=== PATIENT | female | born 1985 | race Caucasian/White ===

== ENCOUNTER 2016-09-03 10:29 | Day surgery (SDC) | payer OTHER ==
[2016-09-03] VITALS (9 sets, daily range): BP systolic 121–143; BP diastolic 71–87; PULSE 79–107; RESP 16–21; O2SAT 98–100
[~2016-09-03] VITALS: Ht 177.8 cm; Wt 96.9 kg
[2016-09-03] MEDS: Lactated Ringer's 1,000 ML IV SCH ×4 (06:00→12:55)
--- NOTE | 2016-09-03 08:38 | PCM.HPANE ---
Patient Data Surgeon Admitting Provider: Attending Provider:Brice King MD Primary Care Physician:Christine Stoddard MD Other Provider:Sarah Dalton Anesthesia Reason for Visit Submucous Leiomyoma Of Uterus Ht/WT & BMI Height (Feet): 5 Height (Inches): 10 Weight (Kilograms): 95.25 Body Mass Index 30.00 Allergies Coded Allergies: No Known Allergies (Unverified , 08/29/16) Past Anesthesia History Anesthesia History: Denies:: Abnormal Airway, Anesthesia Reactions (no prior surgery), Difficult Intubation, Fam Anesthesia Reaction Diabetes History Hx Diabetes?: Yes (hgb A1C 8.2 on 06/2016) Type of Diabetes: Type II Glycemic Control: Oral Medication MRSA MRSA: No Medications Hypertension Medication: Yes Home Meds Incl Beta Clifford: No Reported Medications Metformin (Glucophage)1,000 Mg Tablet1,000 Mg PO BID Ref 0 08/29/16 Lisinopril 5 Mg Tablet5 Mg PO DAILY #30 TABLET Ref 0 08/29/16 Glyburide 2.5 Mg Tablet2.5 Mg PO QPM 30 Days Ref 0 08/29/16 Glyburide 2.5 Mg Tablet3.75 Mg PO QAM 30 Days Ref 0 08/29/16 Cholecalciferol (Vitamin D3) (Vitamin D3)1,000 Unit Tab.chew1,000 Unit PO DAILY 08/29/16 Atorvastatin (Lipitor)10 Mg Tab10 Mg PO DAILY Ref 0 08/29/16 Discontinued Reported Medications Ethinyl Estradiol/Drospirenone 0.03-3 mg (Ocella 0.03-3 mg)1 Each Tablet1 Tablet PO DAILY #1 PACK 08/29/16 History History of ENT Problems?: No HEENT History: Denies:: Abnormal Airway Cataracts Difficult Intubation Dysphagia Glaucoma Hearing Problem Sinus Problem TMJ Hx of Heart Problems?: Yes Cardiovascular History: Positive for:: Hypertension (hld) Denies:: AICD Abdominal Aortic Aneurism Atrial Fibrillation Edema Heart Murmur Irregular Heartbeat Pacemaker Peripheral Vascular Hx of Respiratory Problem?: No Respiratory History: Denies:: Asthma COPD Emphysema Oxygen Administration Pneumonia Tuberculosis Use of C-PAP Machine Use of Inhalers / NEBS Hx Neurologic Problems?: No Neurological History: Denies:: CVA Dizziness Headaches Multiple Sclerosis Parkinson's Disease Seizures TIA Hx of GI Problems?: No Gastrointestinal History: Denies:: Cirrhosis Gall Bladder Disease Gastroesphageal Reflux Heartburn Hepatitis Hiatal Hernia Liver Disease Hx of Problems?: No Genitourinary History: Denies:: Kidney Stones Urinary Tract Infection Female Hx: Denies:: Problems with Breasts? Skin History: Denies:: History Skin Disorders? Pressure Ulcers Hx Musculoskeletal Problems?: No Musculoskeletal History: Denies:: Back Injury Degenerative Joint Fibromyalgia Joint Replacement Musculoskeletal Trauma Myasthenia Gravis Osteoarthritis Rheumatoid Arthritis Hx of Psycho/Social Problems?: No Psycho Social History: Denies:: Anxiety Hx Depression Hx Surgeries?: No Hx Any Other Health Problems?: Yes Other History: Denies:: Cancer Thyroid Disease History Blood Transfusions: Positive for:: Accept Blood Products? Denies:: Blood Transfusions Hx Diabetes: Yes (hgb A1C 8.2 on 06/2016) Hx Alcohol Use: NoHx Substance Use: NoHave You Smoked inLast 12 mo: No Stop/Bang P-Blood Pressure: treated: Yes B- Body Mass Index > 35 kg/m2: No A- Age over 50: No N- Neck Large Circumference: No G- Gender Male: No PAULO Risk Assessment: Low Risk, <3 Yes Risk Assessment Category Category 1A: Patient has history of documented sleep apnea, and HAS NOT received any narcotic, sedative or anesthesia administration during this stay. Category 1B: Patient has history of documented sleep apnea, and HAS received any narcotic , sedative or anesthesia administration during this stay Category 2: Patient has SUSPECTED Obstructive Sleep Apnea, and HAS received any narcotic , sedative or anesthesia administration during this stay. Category 3: Patient has SUSPECTED Obstructive Sleep Apnea and HAS NOT received narcotic, sedative or anesthesia administration during this stay. Category 4: Outpatient in Procedural Areas with known sleep apnea or who screen positive for High Risk via the STOP/BANG questionnaire. Exam Exam General Appearance: Alert, Oriented X3, Cooperative, No Acute Distress HEENT/AIRWAY: MP 2 Lungs: Clear to Auscultation, Normal Air Movement Heart: Exam Unremarkable, Regular Rate/Rhythm, No Murmurs/Rubs/Gallops Plan Impression Patient chart reviewed, patient interviewed and anesthestic plan with risks, benefits, and alternatives discussed, and informed consent obtained. ASA Physical Status: ASA2 Mod Systemic Disease Anesthetic Plan: GA Bene/Risks/Altern/Consents: Yes HP Complete Prior to Induction: Yes Keith Hyatt MD Sep 03, 2016 08:38
[~2016-09-03 10:29] MED LIST: ATRV10T PO; CHOL10008 PO; ETHI1TAB PO; GLYB2.5T4 PO; LISI-571 PO; METF1000 PO
[2016-09-03] MEDS ORDERED: fentaNYL-PF 50 mCg/mL 2 mL Inj ONE (10:30)
[2016-09-03] MEDS ORDERED: Dexamethasone 4 mg/mL Inj ONE (10:30)
[2016-09-03] MEDS ORDERED: Ondansetron 2 mg/mL 2 mL Inj ONE (10:30)
[2016-09-03] MEDS ORDERED: Propofol 10,000 mCg/mL 20 mL Inj ONE (10:30)
[2016-09-03] MEDS ORDERED: Levonorgestrel 20 mcg/24 hr IUD INTRAUTERI ONE (12:29)
[2016-09-03] MEDS ORDERED: Lactated Ringer's 500 ML IV PRN (13:10)
[2016-09-03] MEDS ORDERED: hydrALAZINE 20 mg/mL Inj IVPUSH PRN (13:10)
[2016-09-03] MEDS ORDERED: Dexamethasone 4 mg/mL Inj IVPUSH PRN (13:10)
[2016-09-03] MEDS ORDERED: MetoCLOpramide 5 mg/mL 2 mL Inj IVPUSH PRN (13:10)
[2016-09-03] MEDS ORDERED: fentaNYL-PF 50 mCg/mL 2 mL Inj IVPUSH PRN (13:10)
[2016-09-03] MEDS ORDERED: EPHEDrine Sulfate 50 mg/mL Inj IVPUSH PRN (13:10)
[2016-09-03] MEDS ORDERED: Atropine 0.4 mg/mL Inj IVPUSH PRN (13:10)
[2016-09-03] MEDS ORDERED: HYDROmorphone 1 mg/mL Inj IVPUSH PRN (13:10)
[2016-09-03] MEDS ORDERED: Labetalol 5 mg/mL 4 mL Inj IV PRN (13:10)
[2016-09-03] MEDS ORDERED: Lactated Ringer's 1,000 ML IV SCH (13:10)
[2016-09-03] MEDS ORDERED: Ondansetron 2 mg/mL 2 mL Inj IVPUSH PRN ×2 (13:10→13:45)
[2016-09-03] MEDS ORDERED: Phenylephrine 10,000 mCg/mL Inj IVPUSH PRN (13:10)
--- NOTE | 2016-09-03 13:44 | PCM.SURGOP ---
Surgical Operative Report Date of Service: Sep 03, 2016 Pre Operative Diagnosis Abnormal uterine bleeding related to fibroids Post Operative Diagnosis Same Procedure: 1. Operative hysteroscopy 2. Hysteroscopic myomectomy 3. IUD insertion, Mirena (exp date 01/2019) Surgeon and Plant Pathology Teacher: Surgeon: Brice King MD Assistants: None Indication for Procedure Mojgan is a 31 y/o G0 who presents today for a planned hysteroscopy with myomectomy, D&C and LNG-IUD insertion for AUB-HMB, dysmenorrhea. She bleeding through a tampon and pad every hour. She needs to wear overnight pads, and never has had this before. She states this has been going on for about 8 months. She has also noted that she has deep crampy pain with intercourse, which is new. This interfere tremendously with her life and with work. She had an ultrasound on 06/2016 that shows a 24mm submucosal mass, possibly a fibroid. Uterus measured normally with several small fibroids and the ovary that was visualized appears WNL. Her hgb was normal 06/2016. She had normal thyroid studies at that time. She has DM2 and her hgbA1c was 8.2% and she also had dyslipidemia. She is obese with a BMI of 30. She takes OCPS for contraception, but given her PMH this is not ideal. She had an unremarkable pelvic exam in June and normal pap with negative HPV. She denies h/o STDs and abnormal paps. Preoperative exam performed on 08/26/2015, risks, benefits and alternatives to the procedure reviewed and consents signed. Please see H&P for details. Findings: Bimanual exam reveals 10-11 weeks sized, irregularly shaped, mobile uterus c/w multifibroid uterus. Normal appearing cervix. Intrauterine cavity with anterior mass mid uterus c/w possible fibroid with 1/2 invading the cavity. A small, likely 1-2cm mass seen in the right cornua c/w submucosal fibroid, 100% submucosal. Bilateral ostia noted and normal. Endocervical cavity appears normal. Procedure Details The patient was taken to the operating room where she was placed under general anesthesia without difficulty. She was then positioned in dorsal lithotomy with Yellofin stirrups. An exam under anesthesia was performed that revealed a 10-11 week sized uterus, multi-fibroid and mobile. She was then prepped and draped in the normal sterile fashion. A straight catheterization performed to empty bladder. A time out was performed prior to the start of the procedure. A speculum was then placed in the patient's vaginal and a tenaculum on the anterior lip of the cervix. The uterus was then sounded to 9 cm. The cervix was then easily dilated to accommodate the hysteroscope. The hysteroscopy was performed using normal saline medium. The uterine cavity was inspected and fibroids as described above noted. Bilateral tubal ostia were visualized and were normal. Myosure used to perform myomectomy until fibroids completely cleared from cavity and cavity felt to be without lesions. Hysteroscopic fluid deficit was 975mL. The Mirena IUD was opened and inserted per directions with depth of 9cm as per sound. String trimmed at 4cm. All instruments were removed from the patient's vagina. The tenaculum sites were inspected and noted to be hemostatic. The patient tolerated the procedure well. Sponge, lap, and instrument counts were correct x2 at the close of the procedure. IVF: 500mL UOP: 150mL EBL: 30mL Hysteroscopic fluid deficit: 975mL VTE Prophylaxis: SCDs Antibiotics: None Complications There were no periprocedural complications identified. Surgical Specimen Removed: Yes Specimen sent to Pathology: Yes Surgical Specimen description: Submucosal fibroid fragments Anesthetic Plan: GA Grafts, Implants: Grafts-See Implant Record (Mirena IUD) Output, Estimated Blood Loss: 30 (mL) Blood Administration during alvares: No Catheters: Straight Post Operative Plan Home with recovered and stable. I will see her back in the office in 2 weeks and possible consider shortening strings at this time. Brice King MD Sep 03, 2016 13:44
[2016-09-03] MEDS ORDERED: HYDROcodone-APAP 5-325 mg Tablet PO PRN (13:45)
--- NOTE | 2016-09-03 13:51 | PCM.DIGYN ---
Surgical Discharge Instruction Dates of Hospitalization Date of Hospital Admission 09/03/2016 Providers Admitting Physician: Primary Care Physician: Christine Stoddard MD Attending Physician: Brice King MD Diagnosis at Time of Discharge Post-operative diagnosis Same Problems: (1) Abnormal uterine bleeding Status: Acute ICD Code: N93.9 (2) Submucous uterine fibroid Status: Acute ICD Code: D25.0 (3) Diabetes Status: Acute ICD Code: E11.9 Diet Discharge Diet: Diabetic Activity Discharge Activity-General: Be up and about, No driving while taking narcotic, Other (Pelvic rest for 2 weeks (no intercourse or tampons or anything inside the vagina.)) Dressing and Incisional Care Hygiene: May shower, NO bathtub, hot tub or whirlpool Additional Instructions Discharge Instructions You had an uncomplicated hysteroscopy with removal of fibroids and IUD insertion. The samples of the fibroids were sent to the pathologist and the results should be back in 1-2 weeks. A Mirena IUD was inserted. I left the strings a little longer as we can always trim them when I see you back for your next visit. There is a chance that you expel the IUD (so check the toilet before flushing). If this happens, then another can be inserted in the office. Follow Up Plan Follow-up Provider (F9): Brice King MD Follow-up appointment: Weeks (2) Call your provider for: Fever (of 100.4 or higher), Chills, Shortness of breath , Vomitting, Heavy vaginal bleeding, Increasing pain Brice King MD Sep 03, 2016 13:51
--- NOTE | 2016-09-03 14:00 | PCM.ANEP1 ---
Post Anesthesia Phase 1 PACU Phase 1 Assessment Date of Service: Sep 03, 2016 Vital Signs Vital Signs Date Time Temp Pulse Resp B/P Pulse Ox O2 Delivery O2 Flow Rate FiO2 09/03/16 13:45 103 19 137/87 100 Room Air 09/03/16 13:41 36.6 107 21 143/86 99 Simple Mask 9 09/03/16 11:22 36.8 92 18 124/86 99 Room Air Anesthetic Administered: GA Level of Alertness: Awake, talking NOGUERA's with Equal Strength: Yes Pain: No Nausea or Vomiting: No Oxygen Delivery: Simple Mask Lungs: Clear to Auscultation, Normal Air Movement Keith Hyatt MD Sep 03, 2016 14:00
--- NOTE | 2016-09-03 14:49 | PCM.ANEP2 ---
Post Anesthesia Evaluation ASA/CMS Post Anesthesia VS in Patient's Normal Range?: Yes Resp Stable; Airway Patent?: Yes CV Function & Hydration Stable: Yes Mental Status Recovered?: Yes Pain control Satisfactory?: Yes N/V Control Satisfactory?: Yes Keith Hyatt MD Sep 03, 2016 14:49
--- NOTE | 2016-09-06 08:14 | PATH ---
SURGICAL PATHOLOGY Attending Physician:Brice King MD CASE STATUS: Signed Out PATIENT NAME: BRE ZENDEJAS PID: [id number] : 1985 DATE COLLECTED:09/03/2016 22:37 SPECIMEN: Uterus, Fibroid (separate surgical procedure) CLINICAL HISTORY: ABNORMAL UTERINE BLEEDING, UTERINE FIBROIDS 1). UTERINE FIBROIDS (SUBMUCOSAL) FINAL DIAGNOSIS: Uterine Fibroid (Submucosa): Multiple small fragments of smooth muscle tumor, consistent with submucosal leiomyomas. No evidence of malignancy. ICD10 D25.2 GROSS DESCRIPTION: The specimen is received in one formalin filled container labeled with the patient's name, sublabeled "uterine fibroids (submucosal)" and consists of multiple portions of light dawn tissue which aggregate to 4.0 x 3.0 x 1.0 CM. The specimen is entirely submitted in 4 cassettes. 09/03/2016 DAC MICRO DESCRIPTION: Please see diagnosis. ICD-9 CODES: CPT CODES: 1: 64379 Electronically Signed Out Marely Dominguez MD [facility] Pathology [facility] [address], [place] [address] Technical component performed at [facility], [address] [place] [address] Ave[address], [place], [address]
== END 2016-09-03 23:59 | disposition home or self-care (01) ==
LOC: SAS 10:29
PROVIDERS: ATTEND Obstetrics & Gynecology
DX: D25.0 Submucous leiomyoma of uterus (principal); N93.9 Abnormal uterine and vaginal bleeding, unspecified; I10 Essential (primary) hypertension; E11.9 Type 2 diabetes mellitus without complications; E78.2 Mixed hyperlipidemia; E66.9 Obesity, unspecified; Z79.84 Long term (current) use of oral hypoglycemic drugs; Z68.30 Body mass index [BMI] 30.0-30.9, adult; Z30.014 Encounter for initial prescription of intrauterine contraceptive device
CPT/HCPCS: 58300; 58561; J1100; J2250; J2405; J3010; J7120; J7297; J7298

== ENCOUNTER 2017-03-23 12:35 | Emergency (ER) | payer OTHER ==
[~2017-03-23] VITALS: Ht 177.8 cm; Wt 95.5 kg
[~2017-03-23 12:35] MED LIST changes: -ETHI1TAB PO
[2017-03-23 12:53] VITALS: BP 134/74; PULSE 114; RESP 16; O2SAT 100
[2017-03-23 13:29] LABS: BASOPHILS % (AUTO) 0.6 % (0-3); EOSINOPHILS % (AUTO) 1.8 % (0-5); MONOCYTES % (AUTO) 4.1 % (4-12); Mean Corpuscular Hemoglobin 21.9 pg (27.0-35.0); Mean Corpuscular Volume 71.1 fL (81-100); Platelet Count 533 bil/L (150-400)
[2017-03-23 13:49] LABS: Magnesium 1.6 mg/dL (1.6-2.6)
--- NOTE | 2017-03-23 13:54 | ED.REPORT ---
HPI-General Illness Date of Service Mar 23, 2017 ED Provider: Mojgan is a 31-year-old female with a history of diabetes presenting to emergency department with a chief complaint of vaginal bleeding. Patient reports a 5 week history of vaginal bleeding increasing in the last several days. Patient reports having fibroids removed in August and a Mirena placed. The IUD was accidentally removed in November. On January 22 to the patient received Depo-Provera shot. On February 19 she reports that she started with some mild vaginal bleeding. Increased on February 26. She reports a large clots as well as using heat to 10 tampons per day. This is associated with a sense of fatigue and lower abdominal cramping. Denies fever, shaking chills, purulent vaginal discharge, bowel changes, urinary symptoms, chest pain or shortness of breath Nursing Notes Stated Complaint: PERIOD FOR 5 WEEKS Chief Complaint: General Complaint Nursing Notes Reviewed: Yes Allergies: Coded Allergies: No Known Allergies (Unverified , 08/29/16) Scheduled Atorvastatin (Lipitor) 10 Mg Tab 10 MG PO DAILY Cholecalciferol (Vitamin D3) (Vitamin D3) 1,000 Unit Tab.chew 1,000 UNIT PO DAILY Glyburide (Glyburide) 2.5 Mg Tablet 3.75 MG PO QAM Glyburide (Glyburide) 2.5 Mg Tablet 2.5 MG PO QPM Lisinopril (Lisinopril) 5 Mg Tablet 5 MG PO DAILY Metformin (Glucophage) 1,000 Mg Tablet 1,000 MG PO BID General Time Seen by MD: 13:53 Chief Complaint Other (vaginal bleeding) Past Medical History Past Medical History Diabetes Review of Systems Negative unless stated otherwise in history of present illness Physical Exam General: Well appearing, well developed, well nourished, no acute distress. Head: Atraumatic, normocephalic. Eyes: No scleral icterus or injection. No discharge. Vision grossly intact. ENT: Voice clear, hearing grossly intact. Respiratory: Regular rate and rhythm. Breath sounds present, clear to auscultation and equal bilaterally. No respiratory distress. No increased work of breathing, speaks in complete sentences. Cardiovascular: Tachycardic rate and regular rhythm, without murmur, gallop or rub. No pedal edema. Gastrointestinal: Abdomen flat and non-tender without guarding or rebound. Bowel sounds normoactive. : Normal external genitalia with a small amount of blood noted. No lesions noted. Speculum examination reveals a normal cervix with moderate amount of clotted blood emerging. No lesions or purulence. Bimanual exam is normal with no cervical motion tenderness or adnexal tenderness. Adnexa are not appreciated. Performed with a wood buffer. Skin: Warm and dry. Neurological: Grossly nonfocal. Psychological: Alert and oriented. Speech appropriate, linear and logical. Behavior appropriate. Vital Signs Vital Signs Date Time Temp Pulse Resp B/P Pulse Ox O2 Delivery O2 Flow Rate FiO2 03/23/17 21:26 97 18 114/74 100 Room Air 03/23/17 18:45 37.5 97 16 112/69 100 Room Air 03/23/17 16:08 107 18 127/82 100 Room Air 03/23/17 12:53 36.4 114 16 134/74 100 Room Air Tachycardia Interpretation & Diagnostics Lab Results Interpretation Result Diagram: 03/23/17 1320 03/23/17 1320 Test 03/23/17 13:20 03/23/17 15:30 White Blood Count 8.9th/mm3 (3.8-10.1) Red Blood Count 3.43mil/mm3 (3.90-5.20) Hemoglobin 7.5g/dL (12.0-15.6) Hematocrit 24.4% (35.0-46.0) Mean Corpuscular Volume 71.1fL (81-100) Mean Corpuscular Hemoglobin 21.9pg (27.0-35.0) Mean Corpuscular Hemoglobin Concent 30.7% (32.0-37.0) Red Cell Distribution Width 15.0% (12.3-15.4) Platelet Count 533bil/L (150-400) Neutrophils (%) (Auto) 55.0% (40-74) Lymphocytes (%) (Auto) 38.3% (14-46) Monocytes (%) (Auto) 4.1% (4-12) Eosinophils (%) (Auto) 1.8% (0-5) Basophils (%) (Auto) 0.6% (0-3) Prothrombin Time 9.6sec (8.1-12.5) Prothromb Time International Ratio 0.90ratio Sodium Level 134mEq/L (134-144) Potassium Level 4.2mEq/L (3.5-5.2) Chloride Level 98mEq/L (97-108) Carbon Dioxide Level 19mmol/L (18-29) Blood Urea Nitrogen 10mg/dL (6-20) Creatinine 0.51mg/dL (0.57-1.00) Estimat Glomerular Filtration Rate 200mL/min (>59) Glucose Level 308mg/dL (60-99) Calcium Level 9.4mg/dL (8.5-10.1) Magnesium Level 1.6mg/dL (1.6-2.6) Total Bilirubin 0.2mg/dL (0.0-1.2) Aspartate Amino Transf (AST/SGOT) 13U/L (0-50) Alanine Aminotransferase (ALT/SGPT) 14U/L (0-32) Alkaline Phosphatase 52U/L (25-150) Total Protein 7.1g/dL (6.4-8.4) Albumin 4.2g/dL (3.4-5.0) Urine Color Yellow (YELLOW) Urine Appearance Clear (CLEAR,HAZY) Urine pH 5.5 (5.0-8.0) Urine Specific [place] 1.030 (1.003-1.035) Urine Protein Negativemg/dL (NEG,TRACE) Urine Glucose (UA) 500mg/dL (NEGATIVE) Urine Ketones 15mg/dL (NEGATIVE) Urine Occult Blood Large (NEGATIVE) Urine Nitrite Negative (NEGATIVE) Urine Bilirubin Negative (NEGATIVE) Urine Urobilinogen Normalmg/dL (NORMAL) Urine Leukocyte Esterase Negative (NEGATIVE) Urine RBC 3-10/hpf (0-2) Urine WBC 0-5/hpf (0-5) Urine Epithelial Cells None/hpf (NONE-MOD) Urine Crystals None seen (NONE SEEN) Urine Bacteria None/hpf (NONE-FEW) Urine Hyaline Casts None/lpf (NONE) Urine Granular Casts None seen (NONE SEEN) Urine Waxy Casts None seen (NONE SEEN) Urine Red Blood Cell Casts None seen (NONE SEEN) Urine White Blood Cell Casts None seen (NONE SEEN) Urine Mucus None seen (None Seen) Urine Trichomonas None seen (NONE SEEN) Urine Yeast None (NONE SEEN) Urinalysis Comment None Urine Culture Reflexed Not indicated X-Ray Interpretation Xray Interpretation: PROCEDURE: US PELVIC SONOGRAM INDICATIONS: vaginal bleeding IMPRESSION: 1. Fibroid uterus. 2. Nonvisualization of the right ovary. Re-Eval/Medical Decision Med Decision/Clinical Course 31-year-old female with a history of diabetes presenting with 5 week history of vaginal bleeding. Worsening and to presentation with significant clots, use of 810 tampons per day.. Associated with lower abdominal cramping, fatigue. History of myomectomy in August, Depo-Provera shot in January and worsening bleeding since then. Denies fever, other symptoms. On physical examination the patient is quite pale. There is mild lower abdominal tenderness primarily suprapubic without rebound. The pelvic exam there is expected external bleeding as well as moderate dark blood and clots emergent from the os. Cervix appears normal, negative purulent discharge. On bimanual exam there is no adnexal or cervical motion tenderness. Adnexa are not appreciated. Ultrasound reveals large, vascular fibroids, right ovary is well visualized and normal, left is not found. CBC is significant for moderate anemia with hemoglobin of 7.5 and hematocrit of 24.4. Platelet count is 533. CBC reveals elevated glucose of 308. INR is 0.9. Urinalysis is positive for red blood cells, glucose, ketones. Negative for leukocyte esterase, nitrates, WBC. I discussed these findings with Dr. Duong, who will be treated with and examines the patient. He leaves she is safe to be discharged home and will follow up by phone tomorrow. Consultation : Referral / Consult Name: Quique Duong MD Discharge & Departure Primary Impression: Abnormal uterine bleeding Additional Impression: Fibroids Uterine leiomyoma location: unspecified location Qualified Code: D25.9 - Leiomyoma of uterus, unspecified Disposition: Home Discharge Condition All VS Reviewed: Yes Additional Instructions: Evaluation in the emergency department for vaginal bleeding includes interview, physical examination, labs, ultrasound and consultation with a PHYSICAL FITNESS TRAINER. We believe are stable and safe to go home though your fibroids will need treatment in the near future. Expect a phone call from Dr. Duong's office before 10:00 tomorrow. Please contact his office if he do not hear by then. Return to emergency department for any new or worsening symptoms including increasing bleeding, chest pain, shortness of breath or sense that she may pass out. Referrals: Quique Duong MD EDSupervising Provider for APC: Shelton Wilkins MD Attending Statement I saw and evaluated the patient independently and in conjunction with the PA. I agree with the plan and findings as documented above. In brief, 31 yo F presenting to the ED for evaluation of progressively worsening vaginal bleeding over the past 5 weeks, now fatigued and with some mild shortness of breath that seems to have correlated with her clinical course. Mildly pale, though well appearing, no acute distress. Nonlabored respirations. Mildly tachycardic upon arrival, regular rhythm. No change in mental status. Given the availability of very close outpatient followup with Dr. Duong tomorrow, reasonable to discharge home w/ careful return precautions. Patient agreeable to plan as stated, no further questions. copies to: Quique Duong MD, William B MD Mar 23, 2017 13:54 Christophe Hull PA-C Mar 23, 2017 16:03
[2017-03-23] MEDS ORDERED: 0.9% Sodium Chloride 1,000 ML IV ONE ×2 (14:35→16:10)
[2017-03-23 14:46] LABS: INR 0.9 ratio
[2017-03-23 16:03] LABS: APPEARANCE,URINE CLEAR (CLEAR,HAZY); COLOR,URINE YELLOW (YELLOW); OCCULT BLOOD,URINE LARGE (NEGATIVE); PH,URINE 5.5 (5.0-8.0); UROBILINOGEN,URINE NORMAL (NORMAL)
[2017-03-23 16:08] VITALS: BP 127/82; PULSE 107; RESP 18; O2SAT 100
[2017-03-23 18:45] VITALS: BP 112/69; PULSE 97; RESP 16; O2SAT 100
--- NOTE | 2017-03-23 18:54 | DRSVH ---
PROCEDURE: US PELVIC SONOGRAM INDICATIONS: vaginal bleeding TECHNIQUE: Real-time scanning was performed of the pelvic organs, with image documentation. Additional endovagi nal scanning was necessary due to incomplete visualization of the adnexal and endometrial structures by transabdominal scanning. COMPARISON: None. FINDINGS: Transabdominal scanning: Limited scanning through the kidneys shows no hydronephrosis. No pathologi c free abdominal or pelvic fluid. Endovaginal scanning: Uterus: Uterus is normal in size at 9.2 x 0.6 x 6.0 cm. there are multiple uterine fibroids includin g a left midline subserosal fibroid which measures 3.5 x 3.0 x 2.9 cm and a right midline subserosal fibroid which measures 2.7 x 3.2 x 2.3 cm. The endometrium measures 2.9 mm in combined thickness. Ovaries: The right ovary is not visualized due to bowel gas. The left ovary measures 2.9 x 2.5 x 1.5 cm and demonstrates normal flow. IMPRESSION: 1. Fibroid uterus. 2. Nonvisualization of the right ovary. Dictated by: Bethany Leo M.D. on 03/23/2017 at 18:48 Approved by: Bethany Leo M.D. on 03/23/2017 at 18:53
[2017-03-23] MEDS ORDERED: MedroxyPROGESTERone 150 mg/mL Inj IM ONE (20:50)
--- NOTE | 2017-03-23 21:04 | ED.REPORT ---
HPI- Female Date of Service Mar 23, 2017 ED Provider: Christophe Hull PA-C History of Present Illness: 31 YO presenting with vaginal bleeding since 03/29/2017. Patient was experiencing normal, fairly regular menses until about a year ago when her periods started becoming progressively heavier. Her PCP started her on OC's without benefit and she was seen 07/[address] Willis who found uterine fibroids and performed operative hysteroscopy with hysteroscopic myomectomy in 2016. A Mirena IUD was placed at the same time but expelled spontaneously in late October 2016. She was seen by Dr. Yanes in January 2017 and was given DepoProvera IM at that time. Bleeding subsided but it returned 02/26/2017 and has been persistent since that time. She was seen in urgent care 7 days ago and received PO Provera x 5 days which had little effect on her bleeding. She presents now tired and complaining of malaise associated with her persistent bleeding. No orthostatis symptoms. Occasional small clots, mild dysmenorrhea. Nursing Notes Stated Complaint: PERIOD FOR 5 WEEKS Chief Complaint: General Complaint Nursing Notes Reviewed: Yes Allergies: Coded Allergies: No Known Allergies (Unverified , 08/29/16) Scheduled Atorvastatin (Lipitor) 10 Mg Tab 10 MG PO DAILY Cholecalciferol (Vitamin D3) (Vitamin D3) 1,000 Unit Tab.chew 1,000 UNIT PO DAILY Glyburide (Glyburide) 2.5 Mg Tablet 3.75 MG PO QAM Glyburide (Glyburide) 2.5 Mg Tablet 2.5 MG PO QPM Lisinopril (Lisinopril) 5 Mg Tablet 5 MG PO DAILY Metformin (Glucophage) 1,000 Mg Tablet 1,000 MG PO BID General Time Seen by MD: 20:05 Chief Complaint Other Vaginal bleeding since 02/26/2017 Hx Obtained From: Patient, Spouse Sudden in Onset?: No Past Medical History Past Medical History Diabetes Hypertension Denies: AIDS, Asthma, Bleeding disorder, COPD, Cancer, Congestive heart failure , Coronary artery disease, Diabetes mellitus, GERD, Gastritis, HIV, Hyperlipidemia, Hypertension, Mental illness, Peptic ulcer disease, Sickle cell disease, Stroke, Transient ischemic attack Past Surgical History Hysteroscopic myomectomy 08/2016 Denies: Angioplasty, Appendectomy, , CABG, Carotid endarterectomy, Cataract surgery, Cholecystectomy, Hysterectomy, Inguinal hernia repair, Prostatectomy, Tonsillectomy Family History Mother and maternal GM both required hysterectomy in their 30's for uterine fibroids/menorrhagia Smoking History Never Smoker Social History Alcohol Use: Denies alcohol use Drug Use: Denies drug use Ambulatory Status Independent Review of Systems Basic Review of Systems Respiratory: No shortness of breath, No cough, No wheeze Cardiovascular: No chest pain, No dyspnea on exertion, No orthopnea, No parox noct dyspnea, No palpitations Female: Reports: Vaginal bleeding - abnl Physical Exam Physical Exam Notes: General: Well appearing, well developed, well nourished, no acute distress. Head: Atraumatic, normocephalic. Eyes: No scleral icterus or injection. No discharge. Vision grossly intact. ENT: Voice clear, hearing grossly intact. Respiratory: Regular rate and rhythm. Breath sounds present, clear to auscultation and equal bilaterally. No respiratory distress. No increased work of breathing, speaks in complete sentences. Cardiovascular: Tachycardic rate and regular rhythm, without murmur, gallop or rub. No pedal edema. Gastrointestinal: Abdomen flat and non-tender without guarding or rebound. Bowel sounds normoactive. : Normal external genitalia with a small amount of blood noted. No lesions noted. Speculum examination reveals a normal cervix with moderate amount of clotted blood emerging. No lesions or purulence. Bimanual exam is normal with no cervical motion tenderness or adnexal tenderness. Adnexa are not appreciated. Skin: Warm and dry. Neurological: Grossly nonfocal. Psychological: Alert and oriented. Speech appropriate, linear and logical. Behavior appropriate. Vital Signs Initial Vital Signs Vital Signs (First) Date Time Temp Pulse Resp B/P Pulse Ox O2 Delivery O2 Flow Rate FiO2 03/23/17 12:53 36.4 114 16 134/74 100 Room Air Initial VS: Reviewed, Vital signs normal Interpretation & Diagnostics Lab Results Interpretation Result Diagram: 03/23/17 1320 03/23/17 1320 Test 03/23/17 13:20 03/23/17 15:30 White Blood Count 8.9th/mm3 (3.8-10.1) Red Blood Count 3.43mil/mm3 (3.90-5.20) Hemoglobin 7.5g/dL (12.0-15.6) Hematocrit 24.4% (35.0-46.0) Mean Corpuscular Volume 71.1fL (81-100) Mean Corpuscular Hemoglobin 21.9pg (27.0-35.0) Mean Corpuscular Hemoglobin Concent 30.7% (32.0-37.0) Red Cell Distribution Width 15.0% (12.3-15.4) Platelet Count 533bil/L (150-400) Neutrophils (%) (Auto) 55.0% (40-74) Lymphocytes (%) (Auto) 38.3% (14-46) Monocytes (%) (Auto) 4.1% (4-12) Eosinophils (%) (Auto) 1.8% (0-5) Basophils (%) (Auto) 0.6% (0-3) Prothrombin Time 9.6sec (8.1-12.5) Prothromb Time International Ratio 0.90ratio Sodium Level 134mEq/L (134-144) Potassium Level 4.2mEq/L (3.5-5.2) Chloride Level 98mEq/L (97-108) Carbon Dioxide Level 19mmol/L (18-29) Blood Urea Nitrogen 10mg/dL (6-20) Creatinine 0.51mg/dL (0.57-1.00) Estimat Glomerular Filtration Rate 200mL/min (>59) Glucose Level 308mg/dL (60-99) Calcium Level 9.4mg/dL (8.5-10.1) Magnesium Level 1.6mg/dL (1.6-2.6) Total Bilirubin 0.2mg/dL (0.0-1.2) Aspartate Amino Transf (AST/SGOT) 13U/L (0-50) Alanine Aminotransferase (ALT/SGPT) 14U/L (0-32) Alkaline Phosphatase 52U/L (25-150) Total Protein 7.1g/dL (6.4-8.4) Albumin 4.2g/dL (3.4-5.0) Urine Color Yellow (YELLOW) Urine Appearance Clear (CLEAR,HAZY) Urine pH 5.5 (5.0-8.0) Urine Specific [place] 1.030 (1.003-1.035) Urine Protein Negativemg/dL (NEG,TRACE) Urine Glucose (UA) 500mg/dL (NEGATIVE) Urine Ketones 15mg/dL (NEGATIVE) Urine Occult Blood Large (NEGATIVE) Urine Nitrite Negative (NEGATIVE) Urine Bilirubin Negative (NEGATIVE) Urine Urobilinogen Normalmg/dL (NORMAL) Urine Leukocyte Esterase Negative (NEGATIVE) Urine RBC 3-10/hpf (0-2) Urine WBC 0-5/hpf (0-5) Urine Epithelial Cells None/hpf (NONE-MOD) Urine Crystals None seen (NONE SEEN) Urine Bacteria None/hpf (NONE-FEW) Urine Hyaline Casts None/lpf (NONE) Urine Granular Casts None seen (NONE SEEN) Urine Waxy Casts None seen (NONE SEEN) Urine Red Blood Cell Casts None seen (NONE SEEN) Urine White Blood Cell Casts None seen (NONE SEEN) Urine Mucus None seen (None Seen) Urine Trichomonas None seen (NONE SEEN) Urine Yeast None (NONE SEEN) Urinalysis Comment None Urine Culture Reflexed Not indicated Lab Results Interpretation: Urine hCG NEGATIVE US Focused non-OB Pelvis PROCEDURE: US PELVIC SONOGRAM INDICATIONS: vaginal bleeding TECHNIQUE: Real-time scanning was performed of the pelvic organs, with image documentation. Additional endovaginal scanning was necessary due to incomplete visualization of the adnexal and endometrial structures by transabdominal scanning. COMPARISON: None. FINDINGS: Transabdominal scanning: Limited scanning through the kidneys shows no hydronephrosis. No pathologic free abdominal or pelvic fluid. Endovaginal scanning: Uterus: Uterus is normal in size at 9.2 x 0.6 x 6.0 cm. there are multiple uterine fibroids including a left midline subserosal fibroid which measures 3.5 x 3.0 x 2.9 cm and a right midline subserosal fibroid which measures 2.7 x 3.2 x 2.3 cm. The endometrium measures 2.9 mm in combined thickness. Ovaries: The right ovary is not visualized due to bowel gas. The left ovary measures 2.9 x 2.5 x 1.5 cm and demonstrates normal flow. IMPRESSION: 1. Fibroid uterus. 2. Nonvisualization of the right ovary. Exam Performed by: [facility] Exam Type: Diagnostic Exam Interpreted by: Radiologist Indication: Vaginal bleeding Findings: Uterus/Endomet/Cul-d: Endomet: uterine fibroid Interpretation: Fibroid(s) present Re-Eval/Medical Decision Med Decision/Clinical Course ASSESSMENT: Menometrorrhagia; minimal vaginal bleeding at present Uterine fibroids (confirmed by U/S) Hypochromic, microcytic anemia due to menometrorrhagia; hemodynamically stable Source of Hx: Old records Differential Diagnosis: Positive: Fibroid uterus, Menorrhagia Counseled Regarding: Diagnosis, Lab results, Need for follow-up, Private physician Discharge & Departure Shift Change Sign-Out Patient Care Transferred: No Discussed Complaint(s): Yes Laboratory Evaluation: Back, reviewed by me Imaging Studies: Done, reviewed by me Response to Therapy: Improved Impression: Primary Impression: Abnormal uterine bleeding Additional Impression: Fibroids Uterine leiomyoma location: unspecified location Qualified Code: D25.9 - Leiomyoma of uterus, unspecified Disposition: Home Discharge Condition All VS Reviewed: Yes Condition: Stable Regular activities overnight. Return if significant bleeding noted. Expect phone contact from [facility] tomorrow AM in order to expedite appointment with Dr. Stinson (currently scheduled appointment 04/09/2017) Referrals: Vaishali Perez (PCP) copies to: Ty Stinson MD, Joseph E MD Mar 23, 2017 21:04
[2017-03-23 21:26] VITALS: BP 114/74; PULSE 97; RESP 18; O2SAT 100
== END 2017-03-23 21:26 | disposition home or self-care (01) ==
LOC: SED 12:35
DX: N93.9 Abnormal uterine and vaginal bleeding, unspecified (principal); D25.9 Leiomyoma of uterus, unspecified; E11.9 Type 2 diabetes mellitus without complications; Z79.84 Long term (current) use of oral hypoglycemic drugs
CPT/HCPCS: 36415; 76856; 80053; 81000; 83735; 85025; 85610; 96360; 96361; 96372; 99285; J1050; J7030

== ENCOUNTER 2017-03-25 16:17 | Emergency (ER) | payer OTHER ==
[~2017-03-25] VITALS: Ht 177.8 cm; Wt 95.5 kg
[2017-03-25 16:18] VITALS: BP 123/83; PULSE 120; RESP 15; O2SAT 100
[2017-03-25 16:55] LABS: BASOPHILS % (AUTO) 0.4 % (0-3); EOSINOPHILS % (AUTO) 1.9 % (0-5); Mean Corpuscular Hemoglobin 21.9 pg (27.0-35.0); Mean Corpuscular Volume 71.7 fL (81-100); NEUTROPHILS % (AUTO) 57.1 % (40-74); Platelet Count 630 bil/L (150-400)
--- NOTE | 2017-03-25 17:06 | ED.REPORT ---
HPI-Abd Pain F Under 39 Date of Service Mar 25, 2017 ED Provider: Lionel iWld MD Patient is a 31 year old female with a history of diabetes who presents to the ED complaining of continuing vaginal bleeding. Associated symptoms include lightheadedness and fatigue. She denies , shortness of breath or chest pain. The patient was seen in the ED yesterday where she was given a Depo shot. She reports that her bleeding has improved, where she was initially going through a super plus tampon every hour, now she is only going through one every 3-4 hours. The patient was at her OBGYN earlier today who recommended she have repeats labs to see if her H and H were still low and if she would need a transfusion. Nursing Notes Stated Complaint: HEAVY PERIOD Chief Complaint: Female Abdominal Pain Nursing Notes Reviewed: Yes Allergies: Coded Allergies: No Known Allergies (Unverified , 03/25/17) Scheduled Atorvastatin (Lipitor) 10 Mg Tab 10 MG PO DAILY Cholecalciferol (Vitamin D3) (Vitamin D3) 1,000 Unit Tab.chew 1,000 UNIT PO DAILY Glyburide (Glyburide) 2.5 Mg Tablet 3.75 MG PO QAM Glyburide (Glyburide) 2.5 Mg Tablet 2.5 MG PO QPM Lisinopril (Lisinopril) 5 Mg Tablet 5 MG PO DAILY Metformin (Glucophage) 1,000 Mg Tablet 1,000 MG PO BID General Time Seen by MD: 17:05 Chief Complaint Vaginal bleeding Hx Obtained From: Patient Arrived By: Walk-in Sudden in Onset?: No Severity: Current: No pain currently Recent Healthcare: Recent doctor visit Similar Sx Previous: Yes Past Medical History Past Medical History Diabetes Hypertension Past Surgical History Hysteroscopic myomectomy 08/2016 Family History Mother and maternal GM both required hysterectomy in their 30's for uterine fibroids/menorrhagia Smoking History Never Smoker Social History Alcohol Use: Denies alcohol use Drug Use: Denies drug use Other Social History: Good social support Ambulatory Status Independent Review of Systems Constitutional: Reports: Fatigue, Denies: Chills, Fever Respiratory: Denies: Non-productive cough, Shortness of breath Cardiovascular: Denies: Chest pain GI: Denies: Abdominal pain Female: Reports: Vaginal bleeding - abnl, Denies: Complete sys rev & neg: except as marked. Skin: Denies Itching, Denies Rash Neurologic: Reports: Lightheaded Physical Exam Initial Vital Signs Vital Signs (First) Date Time Temp Pulse Resp B/P Pulse Ox O2 Delivery O2 Flow Rate FiO2 03/25/17 16:18 37.4 120 15 123/83 100 Room Air Initial VS: Reviewed General/Constitutional: Awake, Alert Appearance / Presentation: Positive: Pale Respiratory / Chest: Atraumatic, Breath sounds NL, Breath sounds = bilat, No respiratory distress Cardiovascular: Heart rate NL, Regular rhythm, Heart sounds NL Abdomen: Atraumatic, Soft, Non-tender Back: Atraumatic, Inspection NL Head / Eyes: Atraumatic, Normocephalic, PERRL, EOMI Skin: Warm, Dry Neurologic: Oriented X3, Speech NL Upper Extremity / MS: Atraumatic, Full range of motion Psychiatric: Affect NL, Mood NL Interpretation & Diagnostics Lab Results Interpretation Result Diagram: 03/25/17 1652 03/25/17 1652 Test 03/25/17 16:52 White Blood Count 9.5th/mm3 (3.8-10.1) Red Blood Count 3.29mil/mm3 (3.90-5.20) Hemoglobin 7.2g/dL (12.0-15.6) Hematocrit 23.6% (35.0-46.0) Mean Corpuscular Volume 71.7fL (81-100) Mean Corpuscular Hemoglobin 21.9pg (27.0-35.0) Mean Corpuscular Hemoglobin Concent 30.5% (32.0-37.0) Red Cell Distribution Width 14.7% (12.3-15.4) Platelet Count 630bil/L (150-400) Neutrophils (%) (Auto) 57.1% (40-74) Lymphocytes (%) (Auto) 35.5% (14-46) Monocytes (%) (Auto) 5.0% (4-12) Eosinophils (%) (Auto) 1.9% (0-5) Basophils (%) (Auto) 0.4% (0-3) Sodium Level 136mEq/L (134-144) Potassium Level 4.4mEq/L (3.5-5.2) Chloride Level 100mEq/L (97-108) Carbon Dioxide Level 21mmol/L (18-29) Blood Urea Nitrogen 12mg/dL (6-20) Creatinine 0.55mg/dL (0.57-1.00) Estimat Glomerular Filtration Rate 183mL/min (>59) Glucose Level 321mg/dL (60-99) Calcium Level 9.4mg/dL (8.5-10.1) Total Bilirubin 0.2mg/dL (0.0-1.2) Aspartate Amino Transf (AST/SGOT) 10U/L (0-50) Alanine Aminotransferase (ALT/SGPT) 13U/L (0-32) Alkaline Phosphatase 54U/L (25-150) Total Protein 7.3g/dL (6.4-8.4) Albumin 4.2g/dL (3.4-5.0) Hold [place] Top Tube Received (Received) Re-Eval/Medical Decision Re-Evaluation/Progress : Time of Eval: 17:46 Re-Evaluation/Progress Note: Discussed results and plan for discharge. Patient understands and agrees to plan. All questions were addressed. 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 Since your bleeding is slowing down, no transfusion is indicated at this time. Follow up with your primary care physician or OBGYN next week. Return to the emergency department if you develop any new or concerning symptoms. Referrals: Vaishali Perez (PCP) Scribe Attestation Portions of this note were transcribed by Maia Kingston. I, Dr. Wild personally performed the history, physical exam and medical decision-making; I reviewed and confirmed the accuracy of the information in the transcribed note. Signed by: Elsy Orellana, 03/25/17 copies to: Vaishali Perez Kirk H MD Mar 25, 2017 17:06 Megan Kingston Mar 25, 2017 17:29
== END 2017-03-25 18:10 | disposition home or self-care (01) ==
LOC: SED 16:17
DX: N93.9 Abnormal uterine and vaginal bleeding, unspecified (principal); D50.0 Iron deficiency anemia secondary to blood loss (chronic); R42 Dizziness and giddiness; R53.83 Other fatigue; I10 Essential (primary) hypertension; E11.9 Type 2 diabetes mellitus without complications; Z79.84 Long term (current) use of oral hypoglycemic drugs